=== PATIENT | female | born 1965 | race Native Hawaiian/Other Pacific Islander ===

== ENCOUNTER 2018-09-22 09:12 | Outpatient (CLI) | payer BC ==
[~2018-09-22 09:12] MED LIST: BROMFED DM OR; DEXL60CA4 PO; ENAL10TA PO; HYDR25TA60 PO; LEVAQUIN500 MG OR; MEDROL DOSEPAK4 MG OR; NORGEST/ETH1 OR; [UNRECOGNIZED DRUG - OTHER] OR
== END 2018-09-22 22:45 | disposition home or self-care (01) ==
LOC: MAMMO 09:12
DX: Z12.31 Encounter for screening mammogram for malignant neoplasm of breast (principal)

== ENCOUNTER → 2020-05-16 | Outpatient (CLI) | payer BC, OTHER | LOC: INF 18:20 | PROVIDERS: ATTEND Internal Medicine | DX: Z23 Encounter for immunization (principal) | CPT/HCPCS: 96372 ==

== ENCOUNTER 2020-06-09 08:27 | Outpatient (CLI) | payer BC, OTHER | END 2020-06-09 23:59 | disposition home or self-care (01) | LOC: INF 08:27 | PROVIDERS: ATTEND Internal Medicine | DX: Z23 Encounter for immunization (principal) | CPT/HCPCS: 96372 ==

== ENCOUNTER 2020-09-20 09:00 | Outpatient (CLI) | payer BC | END 2020-09-20 21:52 | disposition home or self-care (01) | LOC: MAMMO 09:00 | PROVIDERS: ATTEND Specialist | DX: Z12.31 Encounter for screening mammogram for malignant neoplasm of breast (principal) ==

== ENCOUNTER 2020-10-26 09:58 | Outpatient (CLI) | payer BC, OTHER ==
[~2020-10-26] VITALS: Ht 162.6 cm; Wt 84.4 kg
== END 2020-10-26 21:10 | disposition home or self-care (01) ==
LOC: INF 09:58
PROVIDERS: ATTEND Internal Medicine
DX: Z23 Encounter for immunization (principal); U07.1 COVID-19
CPT/HCPCS: 96365; M0244

== ENCOUNTER 2021-10-02 15:22 | Outpatient (CLI) | payer BC | END 2021-10-02 19:14 | disposition home or self-care (01) | LOC: MAMMO 15:22 | PROVIDERS: ATTEND Specialist | DX: Z12.31 Encounter for screening mammogram for malignant neoplasm of breast (principal) ==

== ENCOUNTER 2021-11-28 07:50 | Outpatient (CLI) | payer BC | END 2021-11-28 19:13 | disposition home or self-care (01) | LOC: RAD 07:50 → LAB 07:50 → RAD 19:13 | PROVIDERS: ATTEND Nurse Practitioner Family | DX: M54.2 Cervicalgia (principal); R22.1 Localized swelling, mass and lump, neck; R19.7 Diarrhea, unspecified; R10.9 Unspecified abdominal pain; R14.0 Abdominal distension (gaseous) | CPT/HCPCS: 82272; 83630; 87015; 87045; 87324; 87328; 87329; 87449; 87899 ==

== ENCOUNTER 2022-02-13 15:31 | Outpatient (CLI) | payer BC | END 2022-02-13 19:40 | disposition home or self-care (01) | LOC: CT 15:31 | PROVIDERS: ATTEND Nurse Practitioner Family | DX: R31.9 Hematuria, unspecified (principal); R10.9 Unspecified abdominal pain ==

== ENCOUNTER 2022-03-06 15:42 | Outpatient (CLI) | payer BC | END 2022-03-06 22:22 | disposition home or self-care (01) | LOC: RAD 15:42 | PROVIDERS: ATTEND Nurse Practitioner Family | DX: R05.1 Acute cough (principal) ==

== ENCOUNTER 2022-10-08 15:30 | Outpatient (CLI) | payer BC | END 2022-10-08 21:59 | disposition home or self-care (01) | LOC: MAMMO 15:30 | PROVIDERS: ATTEND Specialist | DX: Z12.31 Encounter for screening mammogram for malignant neoplasm of breast (principal) ==